=== PATIENT | female | born 1950 | race Caucasian/White ===

== ENCOUNTER 2020-11-06 08:59 | Day surgery (SDC) | payer MEDICARE, BC ==
[2020-11-06] MEDS ORDERED: Lidocaine 1% MPF 2 ML VIAL ONE (09:09)
[2020-11-06] MEDS ORDERED: EPINEPHrine 1 MG/ML AMP ONE (10:06)
[2020-11-06] MEDS ORDERED: Bupivacaine 0.25% HCL 30 ML VIAL ONE (10:06)
[2020-11-06] MEDS ORDERED: PROPOFOL 20 ML ONE (10:08)
[2020-11-06] MEDS ORDERED: Dexamethasone 4 mg/ml Vial ONE (10:09)
[2020-11-06] MEDS ORDERED: Ondansetron PF 4 MG/2 ML Vial ONE (10:09)
[2020-11-06] MEDS ORDERED: Midazolam HCl 2 mg/2 ml Vial ONE ×2 (10:09→10:10)
[2020-11-06] MEDS ORDERED: Glycopyrrolate 0.2 MG/ML 5 ML SYRINGE ONE (10:09)
[2020-11-06] MEDS ORDERED: Lidocaine 1% PF 5 ML VIAL ONE (10:09)
[2020-11-06] MEDS ORDERED: Fentanyl 100 MCG/2 ML VIAL ONE (10:09)
[2020-11-06] MEDS ORDERED: HYDROcodone/Acetaminophen 5/325 mg Tablet PO PRN (11:09)
== END 2020-11-06 12:30 | disposition home or self-care (01) ==
LOC: CSHSDC 08:59
PROVIDERS: ATTEND Surgery
DX: C50.512 Malignant neoplasm of lower-outer quadrant of left female breast (principal)
CPT/HCPCS: 36561; 82962; C1788; 36416; J0171; J0690; J1100; J1642; J2250; J2405; J2704; J3010; S0020

== ENCOUNTER 2021-04-27 10:39 | Outpatient (CLI) | payer MEDICARE, BC ==
[2021-04-27 20:04] LABS: SARS-CoV-2 PCR by NAA Not Detected (NotDetected)
== END 2021-04-27 10:40 | disposition home or self-care (01) ==
LOC: CSHLAB 10:39
PROVIDERS: ATTEND Surgery
DX: Z20.822 Contact with and (suspected) exposure to COVID-19 (principal); C50.912 Malignant neoplasm of unspecified site of left female breast
CPT/HCPCS: U0003; U0005

== ENCOUNTER 2021-06-18 05:57 | Day surgery (SDC) | payer MEDICARE, BC ==
[2021-06-17 13:29] VITALS: BMI 27.4
[2021-06-18] MEDS ORDERED: Lidocaine 1% MPF 2 ML VIAL ONE (06:29)
[2021-06-18] MEDS ORDERED: EPINEPHrine 1 MG/ML AMP ONE (06:55)
[2021-06-18] MEDS ORDERED: Bupivacaine PF 0.5% 30 ML VIAL ONE (06:55)
[2021-06-18] MEDS ORDERED: Lidocaine 1% PF 5 ML VIAL ONE (07:05)
[2021-06-18] MEDS ORDERED: Dexamethasone 4 mg/ml Vial ONE (07:05)
[2021-06-18] MEDS ORDERED: Fentanyl 100 MCG/2 ML VIAL ONE (07:05)
[2021-06-18] MEDS ORDERED: Midazolam HCl 2 mg/2 ml Vial ONE (07:05)
[2021-06-18] MEDS ORDERED: Ondansetron PF 4 MG/2 ML Vial ONE (07:05)
[2021-06-18] MEDS ORDERED: PROPOFOL 20 ML ONE (07:05)
[2021-06-18] MEDS ORDERED: ceFAZolin 2 GM/DEX 5% 100 ML BAG ONE (07:17)
[2021-06-18] MEDS ORDERED: PHENYLEPHRINE-NS 100 MCG/ML 10 ML SYRINGE ONE (07:48)
[2021-06-18] MEDS ORDERED: HYDROcodone/Acetaminophen 5/325 mg Tablet PO PRN (09:40)
[2021-06-18] MEDS ORDERED: HYDROcodone/Acetaminophen 5/325 mg Tablet ONE (10:22)
== END 2021-06-18 11:20 | disposition home or self-care (01) ==
LOC: CSHSDC 05:57
PROVIDERS: ATTEND Surgery
DX: D05.12 Intraductal carcinoma in situ of left breast (principal); Z79.899 Other long term (current) drug therapy; I10 Essential (primary) hypertension; E11.9 Type 2 diabetes mellitus without complications; E78.5 Hyperlipidemia, unspecified; Z90.710 Acquired absence of both cervix and uterus
CPT/HCPCS: 87070; 87205; 88307; 88341; 88342; J0171; J1100; J2250; J2405; J2704; J3010; S0020

== ENCOUNTER 2023-03-29 19:31 | Emergency (ER) | payer MEDICARE, BC ==
[2023-03-29] MEDS ORDERED: Ibuprofen 200 MG TAB ONE (20:43)
[2023-03-29 21:21] LABS: SARS-CoV-2 NAA Rapid Test DETECTED (NotDetected)
== END 2023-03-29 21:31 | disposition home or self-care (01) ==
LOC: CSHERS 19:31
DX: U07.1 COVID-19 (principal); I10 Essential (primary) hypertension; E11.9 Type 2 diabetes mellitus without complications; Z79.899 Other long term (current) drug therapy
CPT/HCPCS: 0240U; 71045